=== PATIENT | male | born 1990 | race Two or more races ===

== ENCOUNTER 2018-07-10 22:07 | Emergency (ER) | payer MEDICAID, OTHER ==
[~2018-07-10] VITALS: Ht 177.8 cm; Wt 77.1 kg
[~2018-07-10 22:07] MED LIST: DOXY-216 PO
[2018-07-10 22:54] LABS: Basophils # (auto) 0 uL; Basophils % (auto) 0.3 % (0.0-2.0); Eosinophils # (auto) 0.1 uL; Eosinophils % (auto) 1.5 % (0.0-7.0); Hematocrit 45.6 % (41.0-53.0); Hemoglobin 15.8 g/dL (13.5-17.5); Lymphocytes # (auto) 2.4 uL; Lymphocytes % (auto) 27.6 % (10.0-50.0); Mean Corpuscular Hemoglobin 32.8 pg (28.0-32.0); Mean Corpuscular Hgb Conc. 34.6 g/dL (32.0-36.0); Mean Corpuscular Volume 94.5 fL (80.0-100.0); Monocytes # (auto) 0.8 uL; Monocytes % (auto) 8.7 % (0.0-12.0); Neutrophils # (auto) 5.3 uL; Neutrophils % (auto) 61.9 % (37.0-80.0); Nucleated Red Blood Cells % 0.2 %; Platelet Count (auto) 252 10^3/uL (140-450); Red Blood Cells 4.83 10^6/uL (4.5-5.90); Red Cell Distribution Width 13.5 % (11.8-14.3); White Blood Cell 8.6 10^3/uL (4.4-10.8)
[2018-07-10 23:13] LABS: Albumin 4.6 g/dL (3.4-5.0); Calcium 9.1 mg/dL (8.5-10.1); Potassium 3.5 mmol/L (3.5-5.1)
[2018-07-10 23:16] LABS: BUN/Creatinine Ratio 7.1; Total Protein 7.9 g/dL (6.4-8.2)
[2018-07-11 01:08] LABS: Urine Bacteria NONE SEEN /hpf (None Seen); Urine Blood 3+ /uL (Negative); Urine Hyaline Cast FEW /lpf (0 - 2); Urine Mucus FEW (None Seen); Urine Specific Gravity 1.021 (1.001-1.035); Urine WBC 17 /hpf (0 - 3)
[2018-07-11 03:26] VITALS: BP 129/62
[2018-07-11] MEDS ORDERED: LIDOCAINE 1% HCL (LOCAL ANESTH.) INJ 20ML MDV ONE (05:25)
[2018-07-11] MEDS ORDERED: cefTRIAXone SOD 1,000 MG VL IM ONE (05:30)
[2018-07-11] MEDS ORDERED: cefTRIAXone W LIDOCAINE 1 GM IM IM ONE (05:30)
[2018-07-11] MEDS ORDERED: KETOROLAC TROMETH 60MG/2ML VIAL IM ONE (05:30)
== END 2018-07-11 05:58 | disposition home or self-care (01) ==
LOC: ER 22:11
DX: N39.0 Urinary tract infection, site not specified (principal); K59.00 Constipation, unspecified; F17.210 Nicotine dependence, cigarettes, uncomplicated; F12.10 Cannabis abuse, uncomplicated
CPT/HCPCS: 36415; 74176; 80053; 81001; 85025; 94761; 96372; 99284; J0696; J1885; J2001

== ENCOUNTER 2022-12-02 04:08 | Emergency (ER) | payer MEDICAID, OTHER ==
[~2022-12-02] VITALS: Ht 177.8 cm; Wt 175.0 kg
[2022-12-02 04:08] VITALS: BP 133/78; PULSE 70; RESP 16; TEMP 98.7
[~2022-12-02 04:08] MED LIST changes: -DOXY-216 PO; +DOXY-286 PO
[2022-12-02 04:41] VITALS: O2SAT 99
[2022-12-02] MEDS ORDERED: AUG875T PO (04:58)
[2022-12-02] MEDS ORDERED: IBUP-1455 PO (04:58)
[2022-12-02] MEDS ORDERED: cefTRIAXone SOD 1,000 MG VL IM ONE (05:00)
[2022-12-02] MEDS ORDERED: BENZOCAINE (DENTAL) 20 % SPRAY 60ML MT ONE (05:00)
[2022-12-02] MEDS ORDERED: DexAMETHasone SOD PHOS 10MG/1ML VIAL INJ IM ONE (05:00)
[2022-12-02] MEDS ORDERED: IBUPROFEN 800 MG TAB PO ONE (05:00)
== END 2022-12-02 05:40 | disposition home or self-care (01) ==
LOC: ER 04:08
DX: K04.7 Periapical abscess without sinus (principal); F17.210 Nicotine dependence, cigarettes, uncomplicated; F12.10 Cannabis abuse, uncomplicated
CPT/HCPCS: 96372; 99284; J0696; J1100

== ENCOUNTER 2024-06-10 20:35 | Emergency (ER) | payer MEDICAID, OTHER ==
[~2024-06-10] VITALS: Ht 177.8 cm; Wt 82.5 kg
[~2024-06-10 20:35] MED LIST changes: +AUG875T PO; +IBUP-1455 PO
[2024-06-10 22:56] VITALS: BP 113/66; PULSE 56; RESP 18; TEMP 98.6; O2SAT 100
--- NOTE | 2024-06-10 23:18 | ED.PDOC ---
Eye-HPI HPI Comments 34 year old male presents to ER for wound check. Patient reports bleeding from abrasion to nose that he states started at 7:45 pm prior to arrival to ER while he was showering and presents to ER for wound check. Denies any trauma/injury and denies any pain. Patient presents to ER ambulatory on arrival, with steady gait, in no distress with minimal bleeding noted to a 0.5 cm abrasion of nasal bridge. Denies any further symptoms/complaints Chief Complaint: Wound Check Time Seen by MD: 21:12 Primary Care Provider: UNKNOWN Reviewed Notes: Nurses Notes, Medications, Allergies Allergies: Coded Allergies: NO KNOWN ALLERGIES (Unverified , 09/12/11) Home Meds Active Scripts Amoxicillin & Pot Clavulanate (AUGMENTIN TABLET) 875 Mg Tb, 875 MG PO BID for 10 Days, #20 TAB Prov:PAULY STEWARTP 12/02/22 Ibuprofen Micronized (Ibuprofen) 800 Mg Tab, 800 MG PO TID PRN for 30 Days, #90 TAB Prov:PAULY STEWARTP 12/02/22 Doxycycline Hyclate (DOXYCYCLINE HYCLATE) 100 Mg Tab, 100 MG PO BID, #14 TAB Prov:PA PALOMO MD 01/26/14 Information Source: Patient Mode of Arrival: Ambulatory Past Medical History Medical History: Denies Operations: Denies Family History Family History: Unknown Social History Smoking: Cigarettes, Less Than 1 Pack/Day Alcohol: Denies ETOH Use Drugs: Marijuana Lives In: Home Constitutional: denies: chills, diaphoresis, fatigue, fever, malaise, sweats, weakness, others EENTM: reports: others ( STATED IN HPI) Respiratory: denies: cough, hemoptysis, orthopnea, SOB at rest, shortness of breath, SOB with excertion, stridor, wheezing, others Cardiovascular: denies: chest pain, dizzy spells, diaphoresis, Dyspnea on exertion, edema, irregular heart beat, left arm pain, lightheadedness, palpitations, PND, syncope, others Gastrointestinal: denies: abdomen distended, abdominal pain, blood streaked bowels, constipated, diarrhea, dysphagia, difficulty swallowing, hematemesis, melena, nausea, poor appetite, poor fluid intake, rectal bleeding, rectal pain, vomiting, others Genitourinary: denies: burning, dysuria, flank pain, frequency, hematuria, incontinence, penile discharge, penile sore, pain, testicle pain, testicle swelling, urgency, others Neurological: denies: dizziness, fainting, headache, left sided numbness, left sided weakness, numbness, paresthesia, pre-existing deficit, right sided numbness, right sided weakness, seizure, speech problems, tingling, tremors, weakness, others Musculoskeletal: denies: back pain, gout, joint pain, joint swelling, muscle pain, muscle stiffness, neck pain, others Integumetry: reports: others ( STATED IN HPI) Allergic/Immunocompromised: denies: Difficulty Healing, Frequent Infections, Hives, Itching, others Hematologic/Lymphatic: denies: anemia, blood clots, easy bleeding, easy bruising, swollen glands, others Endocrine: denies: excessive hunger, excessive sweating, excessive thirst, excessive urination, flushing, intolerance to cold, intolerance to heat, unexplained weight gain, unexplained weight loss, others Psychiatric: denies: anxiety, bipolar disorder, depression, hopeless, panic disorder, schizophrenia, sleepless, suicidal, others Physical Exam General Appearance: No Apparent Distress HEENT: PERRL/EOMI, Pharynx Normal, TMs Normal, Other (Minimal bleeding noted to a 0.5 cm abrasion of nasal bridge. No further skin changes noted, remainder of nose exam-unremarkable) Neck: Full Range of Motion, Non-Tender, Normal Respiratory: Chest Non-Tender, Lungs Clear, No Accessory Muscle Use, No Respiratory Distress, Normal Breath Sounds Cardiovascular: No Murmur, No Gallop, Regular Rate/Rhythm Breast Exam: Deferred Gastrointestinal: NOT DONE Genitalia: Deferred Pelvic: Deferred Rectal: Deferred Extremities: Normal capillary refill, Normal range of motion Neurologic: Alert, laboratory tester II-XII nml as Tested, No Motor Deficits, Normal Affect, Normal Mood, No Sensory Deficits Cerebellar Function: Normal Reflexes: Normal Skin: Dry, Warm Lymphatic: No Adenopathy Was a procedure done? Was a procedure done?: No Sedation Sedation?: No EENT DIFF Eye: N/A Nose: Anterior Nasal Bleed, Posterior Nasal Bleed, Foreign Body, Other (Fracture) X-Ray, Labs, Meds, VS Vital Signs Date Time Temp Pulse Resp B/P (MAP) Pulse Ox O2 Delivery O2 Flow Rate FiO2 06/10/24 22:56 56 18 100 Room Air 06/10/24 22:56 98.6 56 18 113/66 (82) 100 98.6 06/10/24 20:45 98.6 109 16 145/95 (112) 98 98.6 Patient had improvement in symptoms and bleeding was controlled for at least 1 hour prior to depart Advised to follow up with PCP in 1-2 days Patient verbalized understanding and agreeable with current plan of care Advised to return to ER immediately if symptoms worsen Time of 1ST Reevaluation: 22:54 Reevaluation 1ST: N/A Patient Education/Counseling: Diagnosis, Treatment, Prognosis, Need For Follow Up Family Education/Counseling: No Family Present Departure 1 Departure Time of Disposition: 23:12 Impression: Primary Impression: Abrasion of nose Qualified Codes: S00.31XA - Abrasion of nose, initial encounter Disposition: HOME / SELF CARE / HOMELESS Condition: Stable Critical Care Note Critical Care Time?: No Stability Stability form required: NOE Flores Jun 10, 2024 23:18
== END 2024-06-10 23:27 | disposition home or self-care (01) ==
LOC: ER 20:39
DX: S00.31XA Abrasion of nose, initial encounter (principal); F17.210 Nicotine dependence, cigarettes, uncomplicated; F12.90 Cannabis use, unspecified, uncomplicated; Z79.899 Other long term (current) drug therapy; X58.XXXA Exposure to other specified factors, initial encounter; Y93.E1 Activity, personal bathing and showering; Y92.89 Other specified places as the place of occurrence of the external cause; Y99.8 Other external cause status